=== PATIENT | female | born 1965 | race African-American/Black ===

== ENCOUNTER 2019-12-29 11:33 | Emergency (ER) | payer BC, OTHER ==
[~2019-12-29] VITALS: Ht 170.2 cm; Wt 114.8 kg
[~2019-12-29 11:33] MED LIST: CLIMARA1 EAC2 TOP; COLACE100 MG PO; GAS RELIEF 8080 MG PO; HYDROXYZINE HCL25 M2 PO; IBUPROFEN 800800 M1 PO; IROSPAN 24/6 T1 EACH PO; MILK OF MA2400 MG/10 PO; NORCO 10-325 T1 EACH PO; NORCO 5-325 TA1 EACH PO; PEPCID20 MG PO; PERCOCET 10-321 EACH PO; TYLENOL325 MG PO
[2019-12-29] MEDS ORDERED: BUSPIRONE HCL10 MG PO (12:44)
[2019-12-29 12:45] LABS: ABSOLUTE NEUTROPHILS 4.2 thou/uL (1.4-8.2); BASOPHILS 0.5 % (0.0-2.0); EOSINOPHILS 1.9 % (0.0-3.0); HEMATOCRIT 36.7 % (37.0-47.0); HEMOGLOBIN 11.9 gm/dL (12.0-15.0); LYMPHOCYTES 23.1 % (24.0-44.0); MCH 26.6 pg (26.0-34.0); MCHC 32.4 g/dL (28.0-37.0); MCV 82.2 fL (80.0-100.0); MONOCYTES 7.2 % (1.0-8.0); PLATELET COUNT 237 thou/uL (150-400); POLYS 67.3 % (36.0-66.0); RBC 4.46 mil/uL (4.20-5.00); RDW 13.3 % (10.5-14.5); WBC 6.2 thou/uL (4.0-11.0)
[2019-12-29 12:53] LABS: ANION GAP 8 mmol/L (7-16); BUN 13 mg/dL (7-18); CALCIUM 9.1 mg/dL (8.5-10.1); CHLORIDE 106 mmol/L (98-107); CO2 28 mmol/L (21-32); CREATININE 0.9 mg/dL (0.6-1.0); GLUCOSE 131 mg/dL (74-106); POTASSIUM 3.9 mmol/L (3.5-5.1); SODIUM 142 mmol/L (136-145)
[2019-12-29 13:02] LABS: TROPONIN-I <0.06 ng/mL (<0.06)
[2019-12-29 15:10] VITALS: BP 138/105
--- NOTE | 2019-12-29 15:51 | EKG ---
[facility] [place] [address] ELECTROCARDIOGRAM REPORT Name: FRANCA CARDONA Room #: DEP [facility]#: [id number] Admission: 12/29/19 Attend Phys: Discharge: 12/29/19 Date of : 61 Report #: [id number] THIS REPORT FOR: cc: Kendall Martínez MD, Kirk D. MD Couchonnal, Luis F. MD ~ THIS REPORT FOR: //name// [facility] ED Test Date: 2019-12-29 Test Time: 15:06:08 Pat Name: FRANCA CARDONA Department: Room: Gender: F Adjunct Faculty Mathematics Department: cosme : 1965 Requested By: Lucio Hinton Order Number: [id number] MD: Kit Fernandes Measurements Intervals [place] Rate: 86 P: 53 ID: 176 QRS: 21 QRSD: 95 T: 18 QT: 351 QTc: 420 Interpretive Statements Sinus rhythm Probable left atrial enlargement Probable anteroseptal infarct, old No previous ECG available for comparison Electronically Signed On 12-29-2019 15:51:05 CDT by Kit Fernandes [email or web address] <ELECTRONICALLY SIGNED> By: Kit Fernandes MD 12/29/19 1551 [id number] Kit Fernandes MD /EPI
== END 2019-12-29 15:18 | disposition home or self-care (01) ==
LOC: ER 11:33
PROVIDERS: Emergency Medicine
DX: R00.2 Palpitations (principal); R42 Dizziness and giddiness; R20.2 Paresthesia of skin; Z86.2 Personal history of diseases of the blood and blood-forming organs and certain disorders involving the immune mechanism; Z79.899 Other long term (current) drug therapy

== ENCOUNTER 2020-02-27 16:03 | Inpatient (IN) | payer BC, OTHER ==
[~2020-02-27] VITALS: Ht 170.2 cm; Wt 111.6 kg
[~2020-02-27 16:03] MED LIST changes: +BUSPIRONE HCL10 MG PO
[2020-02-27 16:04] VITALS: BP 105/57
[2020-02-27] MEDS ORDERED: AZITHROMYCIN 2250 MG PO (16:20)
[2020-02-27] MEDS ORDERED: HYDROXYCHLOROQ200 M1 PO (16:21)
[2020-02-27 16:37] LABS: ABSOLUTE NEUTROPHILS 3.8 thou/uL (1.4-8.2); BASOPHILS 0.7 % (0.0-2.0); HEMATOCRIT 36.5 % (37.0-47.0); LYMPHOCYTES 17.5 % (24.0-44.0); MCH 26.5 pg (26.0-34.0); MCHC 32.9 g/dL (28.0-37.0); MCV 80.8 fL (80.0-100.0); MONOCYTES 7.9 % (1.0-8.0); PLATELET COUNT 196 thou/uL (150-400); POLYS 73.9 % (36.0-66.0); RBC 4.51 mil/uL (4.20-5.00); RDW 13.4 % (10.5-14.5); WBC 5.2 thou/uL (4.0-11.0)
[2020-02-27 16:43] LABS: CALCIUM 9.1 mg/dL (8.5-10.1); CREATININE 1.5 mg/dL (0.6-1.0); POTASSIUM 4.2 mmol/L (3.5-5.1)
[2020-02-27 16:49] LABS: ALBUMIN 3.3 g/dL (3.4-5.0); TOTAL BILIRUBIN 0.4 mg/dL (0.2-1.0); TOTAL PROTEIN 8.3 g/dL (6.4-8.2)
[2020-02-27 17:45] VITALS: BP 111/67
[2020-02-28 06:28] LABS: ALBUMIN 2.6 g/dL (3.4-5.0); CREATININE 0.9 mg/dL (0.6-1.0); PHOSPHORUS 3.3 mg/dL (2.5-4.9)
[2020-02-28 06:55] LABS: POTASSIUM 4.9 mmol/L (3.5-5.1)
--- NOTE | 2020-02-28 11:32 | NUR ---
NIKITA CALLED TO INFORM THIS NURSE THAT PT HAS PNEUMONIA AND WILL BE STAYING, PT TO START STEROIDS, ABT, AND REFERRAL TO [facility]
[2020-02-28 17:37] VITALS: BP 134/74
[2020-02-29 06:12] LABS: INR 1.1; PROTIME 11.2 Seconds (9.3-11.4)
[2020-02-29 06:13] LABS: ABSOLUTE NEUTROPHILS 3.2 thou/uL (1.4-8.2); BASOPHILS 0.5 % (0.0-2.0); EOSINOPHILS 1.2 % (0.0-3.0); HEMATOCRIT 33.4 % (37.0-47.0); HEMOGLOBIN 10.8 gm/dL (12.0-15.0); LYMPHOCYTES 25.5 % (24.0-44.0); MCH 26.9 pg (26.0-34.0); MCHC 32.3 g/dL (28.0-37.0); MCV 83.1 fL (80.0-100.0); PLATELET COUNT 172 thou/uL (150-400); POLYS 64.8 % (36.0-66.0); RBC 4.01 mil/uL (4.20-5.00); RDW 13.4 % (10.5-14.5); WBC 4.9 thou/uL (4.0-11.0)
[2020-02-29 06:18] LABS: FIBRINOGEN 489.1 mg/dL (210-360)
[2020-02-29 06:40] LABS: ALBUMIN 2.8 g/dL (3.4-5.0); CALCIUM 8.8 mg/dL (8.5-10.1); CREATININE 0.9 mg/dL (0.6-1.0); POTASSIUM 4.2 mmol/L (3.5-5.1); TOTAL BILIRUBIN 0.3 mg/dL (0.2-1.0); TOTAL PROTEIN 7.3 g/dL (6.4-8.2)
[2020-02-29 10:06] VITALS: BP 140/88
[2020-02-29 14:20] VITALS: BP 136/74
[2020-02-29 18:30] VITALS: BP 132/79
[2020-02-29 20:35] VITALS: BP 148/93
[2020-03-01 01:56] VITALS: BP 157/96
[2020-03-01 02:45] VITALS: BP 129/88
--- NOTE | 2020-03-01 07:18 | NUR ---
Arrived from ER around 0235. Enhanced precaution (COVID +) , afebrile. No nausea or diarrhea since arrival on the floor. Sputum sample sent. ER sent MRSA swab and urine sample.
[2020-03-01 07:58] VITALS: BP 122/75
[2020-03-01 08:42] VITALS: BP 136/83; BP 141/85
--- NOTE | 2020-03-01 15:49 | NUR ---
INITIAL ASSESSMENT: SW reviewed chart and spoke with nursing and attending physician. Pt is in Enhanced Isolation due to positive COVID test. Pt is afebrile and on 2L of O2. Pt is on IV abx. Pt is having convalescent plasma today and is completing course of Remdesivir. SW spoke with pt via phone. Introduced role of SW. Pt is alert/orientated. Pt reports she works at [employer]. Pt lives at home and is normally independent with ADLs. Pt 's PCP is Dr. Kendall Martínez. Pt requests SW to call back at a later time. SW is following to assist as needed with discharge planning.
[2020-03-01 16:59] VITALS: BP 149/92
--- NOTE | 2020-03-01 17:00 | NUR ---
PT CARE ASSUMED AT 0700, PT ALERT AND ORIENTED X4, DENIES ANY PAIN, NAUSEA AND VOMITTING. PT IS ON ROOM AIR, NO SIGNS OF DISTRESS NOTED. UP AD TRISHA TO BATHROOM. DENIES ANY NEEDS. PROGRESSING TOWARDS CARE. WILL CONTINUE TO MONITOR.
--- NOTE | 2020-03-01 17:01 | NUR ---
0845 CONVALUSCENT PLASMA STARTED, VTALS SIGNS COMPLETED AFTER 15MINS, NO REACTION NOTED 1100 PLASMA COMPLETED, NO REACTION NOTED. VITALS SIGNS OMPLETED
[2020-03-01 19:10] VITALS: BP 158/89
[2020-03-02 05:06] VITALS: BP 166/109
[2020-03-02 05:31] VITALS: BP 132/85
[2020-03-02 06:42] LABS: ALBUMIN 3.1 g/dL (3.4-5.0); DIRECT BILIRUBIN 0.1 mg/dL (<0.1-0.2); TOTAL BILIRUBIN 0.3 mg/dL (0.2-1.0); TOTAL PROTEIN 8.4 g/dL (6.4-8.2)
[2020-03-02 07:19] VITALS: BP 128/83
--- NOTE | 2020-03-02 07:40 | NUR ---
Requested med for cough at HS , guiafenessin ordered by DRILL RIG OPERATOR.Also requested for her prn anxiety med. She slept fair during the night. MEAT AND POULTRY INSPECTOR reported elevated BP this am 166/109. Pt. upset that she got woken up for BP check. She then complained of chest pressure she rated as 7/10. She stated she had it before at home intermittently and usually takes 2 baby aspirins which help with pain. She also described chest pressure as better when taking a deep breath. Encouraged to relax and rest , rechecked BP and got 132/85. DRILL RIG OPERATOR notified of above. EKG done, aspirin 81 mg given x1. EKG sent to DRILL RIG OPERATOR with no further order. Tolerating room air well though reports shortness of breath with exertion. Cont. on enhanced precaution , afebrile. Nausea and diarrhea has resolved since yesterday. Up ad gurwinder in room with steady gait and verbalized she definitely feels a lot better than when she first got here. Making some progress towards care plan goals.
[2020-03-02 08:03] VITALS: BP 113/65
--- NOTE | 2020-03-02 08:53 | EKG ---
[facility] [place] [address] ELECTROCARDIOGRAM REPORT Name: FRANCA CARDONA Room #: 349-I ADM IN M.R.#: [id number] Admission: 02/28/20 Attend Phys: Faith Matias Discharge: Date of : 61 Report #: [id number] THIS REPORT FOR: cc: Kendall Martínez MD, Kirk D. MD Lundgren, Craig H. MD [facility] ~ THIS REPORT FOR: //name// [facility] Test Date: 2020-03-02 Test Time: 06:05:43 Pat Name: FRANCA CARDONA Department: Room: 349 I Gender: F Crystal Syrup Maker: IU--0 : 1965 Requested By: Shalini Gonsales Order Number: [id number] MD: Pedro Pablo Kwan Measurements Intervals [place] Rate: 68 P: 61 ND: 169 QRS: 28 QRSD: 90 T: 19 QT: 417 QTc: 444 Interpretive Statements Sinus rhythm No significant abnormality Compared to ECG 12/29/2019 15:06:08 Myocardial infarct finding no longer present Electronically Signed On 03-02-2020 8:53:15 CDT by Pedro Pablo Kwan [email or web address] <ELECTRONICALLY SIGNED> By: Pedro Pablo Kwan MD, [facility] 03/02/20 0853 0605 Pedro Pablo Kwan MD, [facility] /EPI
--- NOTE | 2020-03-02 11:35 | NUR ---
SW reviewed chart and spoke with nursing and attending physician. Pt remains in Enhanced Isolation due to COVID-19. Pt had convalescent plasma yesterday and completing course of Remdesivir. Pt is afebrile and not requiring O2. Pt is on IV abx. Plan is for pt to discharge home when medically stable. SW is following to assist as needed with discharge planning.
--- NOTE | 2020-03-02 13:36 | NUR ---
PT CARE ASSUMED AT 0700, PT ALERT AND ORIENTED X4, PT DENIES ANY CHEST PAIN, NAUSEA AND VOMITTING. PT IS ON ROOM AIR, NO SIGNS OF DISTRESS. UP AD TRISHA TO THE BATHROOM. DENIES ANY NEEDS ZULMA. PROGRESSING TOWARDS CARE. WILL CON TINUE TO MONITOR.
[2020-03-02 15:21] VITALS: BP 131/72
[2020-03-02 20:47] VITALS: BP 163/92
[2020-03-03 05:09] VITALS: BP 156/89
[2020-03-03 05:19] LABS: CREATININE 0.8 mg/dL (0.6-1.0); DIRECT BILIRUBIN 0.1 mg/dL (<0.1-0.2); POTASSIUM 4.5 mmol/L (3.5-5.1); TOTAL BILIRUBIN 0.2 mg/dL (0.2-1.0); TOTAL PROTEIN 7.1 g/dL (6.4-8.2)
--- NOTE | 2020-03-03 06:25 | NUR ---
Pt. slept fair during the night. She did not request for prn anxiety med this shift. Tolerating room air well though she reported she still gets short of breath with exertion. Cont. on enhanced precaution , afebrile. Up ad gurwinder in room with steady gait. Making some progress towards care plan goals.
[2020-03-03 07:34] VITALS: BP 130/80
--- NOTE | 2020-03-03 11:38 | NUR ---
SW reviewed chart and spoke with nursing and attending physician. Pt remains in Enhanced Isolation due to COVID-19. Pt is afebrile and not requiring O2. Pt is on IV abx and will complete course of Remdesivir today. Discharge home is anticipated for tomorrow. SW placed call to pt's room to discuss discharge. No answer. No discharge needs identified at this time. SW is available to assist should needs arise.
--- NOTE | 2020-03-03 16:47 | NUR ---
ASSUMED CARE OF PT AT SHIFT CHANGE. ASSESSMENT CHARTED. MEDS GIVEN PER JUL. PT A&OX4, C/O HEADACHE TREATED WITH TYLENOL. ON RA, SOA WITH EXERTION. FAMILY DROPPED OFF FOOD IN THE AFTERNOON. WILL CONTINUE TO MONITOR AND FOLLOW POC.
[2020-03-03 19:23] VITALS: BP 155/81
[2020-03-04 05:19] VITALS: BP 157/99
[2020-03-04 06:04] LABS: ALBUMIN 3.1 g/dL (3.4-5.0); DIRECT BILIRUBIN < 0.1 mg/dL (<0.1-0.2); SGOT 48 U/L (15-37); SGPT 93 U/L (30-65); TOTAL BILIRUBIN 0.3 mg/dL (0.2-1.0); TOTAL PROTEIN 8.1 g/dL (6.4-8.2)
--- NOTE | 2020-03-04 07:39 | NUR ---
ASSUMED CARE AT 1900, ASSESSMENT COMPLETED. PT C/O NECK PAIN R/T POOR SLEEP POSITION, GAVE TYLENOL. PT ALSO ASKED FOR PRN ANXIETY MED, GAVE WITH HS MEDS. DENIES NAUSEA. REPORTED SOB WITH EXERTION, SUCH TAKING A SHOWER; O2 SATS NORMAL ON RA. NO OTHER CONCERNS, SHIFT REPORT GIVEN AT 0700.
[2020-03-04 08:00] VITALS: BP 144/107
--- NOTE | 2020-03-04 08:37 | NUR ---
PATIENT UP FOR BREAKFAST. ALERT XS4 TOOK AM MEDS INCLUDING ACETAMININOPHEN FOR GENERAL DISCOMFORT AND T= 99.3 PT EATING BREAKFAST. IV ABT INFUSING ORDERED,
[2020-03-04] MEDS ORDERED: PREDNISONE 20 M20 M1 PO (10:32)
[2020-03-04] MEDS ORDERED: ZINC SULFATE 2220 MG PO (10:32)
--- NOTE | 2020-03-04 11:10 | NUR ---
COVID 19 TEST COMPLETED DONE IN LEFT NARE DISCOMFORT TO PATIENT TEST TO LAB.
[2020-03-04 15:10] VITALS: BP 134/74
[2020-03-04 16:10] VITALS: BP 132/80
--- NOTE | 2020-03-04 16:19 | NUR ---
PATIENT'S V.S AT THIS TIME 97.1 18 104 167/81 O2 SAT 100 RA PT GIVEN ZANAX AT THIS TIME PER HER REQUEST. WILL CALL DOCTOR TO SEE IF HE WANTS PRN B/P MED.
--- NOTE | 2020-03-04 16:25 | NUR ---
PT TO DISCHARGE TO HOME TODAY TELE MONITOR DCD AND IV ACSESS DCD. PT TAKING SHOWER COVID 19 RAPID TEST IS NEGATIVE.
--- NOTE | 2020-03-04 16:57 | NUR ---
DISCHARGE PAPERS REVIEWED WITH PATIENT SIGNED AND COPY IN CHART. PT TAKEN WITH BELONGINGS VIA W/C TO ER TO SON'S CAR FOR DISCHARGE NO PAIN OR REP DISTRESS AT DISCHARGE.
--- NOTE | 2020-03-04 20:47 | NUR ---
COVID TEST CAME BACK POSITIVE, PT HAD ALREADY BEEN DISCHARGED, SHE WAS TESTING POSITIVE PRIOR TO DC.
== END 2020-03-04 17:00 | disposition home or self-care (01) | DRG 177 ==
LOC: ER 16:03 → EROBS 18:18 → 3W 03-01 02:15
PROVIDERS: Emergency Medicine; Specialist; ADMIT Hospitalist; ATTEND Hospitalist
PROC: XW033E5 Introduction of Remdesivir Anti-infective into Peripheral Vein, Percutaneous Approach, New Technology Group 5 (ICD-10-PCS; principal; 2020-02-29)
PROC: XW13325 Transfusion of Convalescent Plasma (Nonautologous) into Peripheral Vein, Percutaneous Approach, New Technology Group 5 (ICD-10-PCS; 2020-03-01)
DX: U07.1 COVID-19 (principal); J12.89 Other viral pneumonia; J96.01 Acute respiratory failure with hypoxia; N17.9 Acute kidney failure, unspecified; E86.0 Dehydration; K52.9 Noninfective gastroenteritis and colitis, unspecified; K75.9 Inflammatory liver disease, unspecified; E66.9 Obesity, unspecified; Z68.38 Body mass index [BMI] 38.0-38.9, adult; Z79.899 Other long term (current) drug therapy
CPT/HCPCS: 10879

== ENCOUNTER 2021-04-04 21:21 | Inpatient (IN) | payer BC, OTHER ==
[~2021-04-04] VITALS: Ht 170.2 cm; Wt 111.1 kg
--- NOTE | ~2021-04-04 | HC ---
[facility] [place] [address] CONSULTATION Name: FRANCA CARDONA Room #: 208-P ADM IN M.R.#: [id number] Admission: 04/05/21 Attend Phys: King Knight MD Discharge: Date of : 61 Report #: [id number] THIS REPORT FOR: cc: [facility] - Clinic physician unknown [facility] - Clinic physician unknown Rizwan Rosales MD ~ DATE OF SERVICE: 04/05/2021 HISTORY OF PRESENT ILLNESS: This is a 55-year-old female patient who was seen by me for TIA-like symptoms. The patient presented with a left-sided numbness. This is in relation to having some tooth pain also. History is pretty unusual. When I saw this patient, she said her numbness has resolved. I reviewed the record and looks like she was seen by Teleneurology and they had recommended an MRI of the brain, MRA of the head and neck because CT angiogram was inconclusive. Only CT of the head and a CTA of the head was ordered and that had been done and that does not show any abnormality except some mild chronic changes. Those findings are pretty subtle. REVIEW OF SYSTEMS: Positive for anxiety. She has some tooth pain. To me, she says she has tingling and numbness on the left side. She has given different history to different people. She has prior history of anxiety, hysterectomy, COVID positive in 02/2020, anemia and . She has been on antianxiety medication, compliance is not clear. This was a relevant 14-point review of system. PAST MEDICAL HISTORY: Positive for anxiety. FAMILY HISTORY: Unremarkable. SOCIAL HISTORY: She does not drink alcohol. PHYSICAL EXAMINATION: She is alert. She can tell me what month it is. Her speech looks intact. Cranial nerve examination II-XII does not appear to be showing any definite abnormality. She says even subjective numbness has gone. Strength looks symmetrical. Reflexes look symmetrical. There is no ataxia. I could not look at the fundus. There is no meningeal sign. Hearing and vision looks adequate. She is morbidly obese. She does not have any edema. Pulses appeared to be palpable. Cardiac examination is unremarkable. No respiratory difficulty. Blood pressure is 138/83, pulse is 83, temperature is 97.9. Hematocrit is 36.4. Her GFR was actually 105. TSH was normal. IMPRESSION: Pretty poorly defined symptoms with the workup being negative so far. I am not sure what the cause of her TIA was even. She is on aspirin. We will see the lipid profile to see if there is any need to give the patient statin. Her sed rate and vitamin B12 is pending and I am not sure what else can be done except a psychiatry consult for anxiety also. [address] [address] CONSULTATION Name: FRANCA CARDONA Room #: 208-P ADM IN M.R.#: [id number] Admission: 04/05/21 Attend Phys: King Knight MD Discharge: Date of : 61 Report #: [id number] Thank you very much for this referral and if you have any questions, please feel free to contact me. By: 1635 2231 Rizwan Rosales MD /nt
--- NOTE | ~2021-04-04 | EMS ---
[address] [address] EMS Patient Care Report Name: FRANCA CARDONA Room #: 208-P ADM IN M.R.#: [id number] Admission: 04/05/21 Attend Phys: King Knight MD Discharge: Date of : 61 Report #: [id number] THIS REPORT FOR: //name// Report Transmitted: 04/05/2021 13:17 EMS Care Summary [place], [place] Incident [id number] @ 04/04/2021 20:47 Incident Location [address] [place] [address] RD Patient FRANCA CARDONA Female, 55 Years 1965 Patient Address [address] [place] [address] Patient History None Reported, Patient Allergies No known allergies, Patient Medications None Reported, Chief Complaint TOOTHACHE Disposition Transported No Lights/[place] Dispatch Reason Sick Person Transported To [facility] Narrative M30 RESPONDED NON EMERGENCY TO A SICK PERSON. ON SCENE M30 WALKED INTO TO [facility] AND FOUND A STAFF MEMBER BEHIND A COUNTER. [place] STAFF CALLED EMS FOR A TOOTHACHE. PT WAS A&OX4, GCS OF15. NO TRAUMA OR BLEEDING NOTED. PT WAS NOT IN ANY DISTRESS, BUT LOOKED IN DISCOMFORT STATING THAT HE'S HAD RIGHT SIDE TOOTHACHE FOR A WEEK. PT ALSO REPORTED HEADACHE. PT [address] [address] EMS Patient Care Report Name: FRANCA CARDONA Room #: 208-P [facility] IN ..#: [id number] Admission: 04/05/21 Attend Phys: King Knight MD Discharge: Date of : 61 Report #: [id number] REQUESTED TRANSPORT VIA AMBULANCE TO [facility]. PT BOARDED THE STRETCHER AND SHE WAS SECURED WITH SEATBELTS. PT WAS MOVED TO THE AMBULANCE. PT'S CONDITION REMAINED STABLE AND UNCHANGED DURING NON EMERGENCY TRANSPORT TO THE HOSPITAL. PT CARE WAS TRANSFERRED TO ER STAFF IN TRIAGE AREA. PT WAS LOWERED ON COT AND RELEASED TO A CHAIR WHERE SHE HAD A SEAT AND WAITED. EMS NOTIFIED THE NURSE THAT THE PT WAS WAITING. PT WAS LEFT UNDER RN CARE. Initial Vitals @21:02P: 95,R: 16,BP: 157/107,Pain: 8/10,GCS: 15,CO: 0,SpO2: 100,Revised Trauma: 12, Assessments @21:00MENTAL:No Abnormalities,SKIN:No Abnormalities,HEENT:Head/Face: No Abnormalities,Eyes: No Abnormalities,Neck/Airway: No Abnormalities,LUNG SOUNDS:General: No Abnormalities,Left Upper: No Abnormalities,Right Upper: No Abnormalities,Left Lower: No Abnormalities,Right Lower: No Abnormalities,ABDOMEN:General: No Abnormalities,Left Upper: No Abnormalities,Right Upper: No Abnormalities,Left Lower: No Abnormalities,Right Lower: No Abnormalities,PELVIS//GI:No Abnormalities,EXTREMITIES:Left Arm: No Abnormalities,Right Arm: No Abnormalities,Left Leg: No Abnormalities,Right Leg: No Abnormalities,PULSE:NEURO:No Abnormalities, Impression Toothache Procedures @21:00 ALS Assessment Response: UnchangedSucceeded Timeline 20:45,Call Received 20:45,Dispatch Notified 20:47,Dispatched 20:48,En Route 20:58,On Scene 21:00,At Patient 21:00,ALS Assessment,Response: UnchangedSucceeded, 21:02,BP: 157/107 M,PULSE: 95,RR: 16 R,SPO2: 100 Ox,ETCO2: ,BG: ,PAIN: 8,GCS: 15, 21:10,Depart Scene 21:26,At Destination 21:31,Call Closed Disclaimer v1.1 Copyright 2020 [employer] This EMS Care Summary contains data elements from the applicable legal record [address] [address] EMS Patient Care Report Name: FRANCA CARDONA Naima Room #: 208-P ADM IN [facility].#: [id number] Admission: 04/05/21 Attend Phys: King Knight MD Discharge: Date of : 61 Report #: [id number] (which may be displayed differently). It is designed to provide pertinent information for the following purposes: continuity of care, clinical quality, and state data reporting. The complete legal record is available to ED staff and administrators of the receiving hospital in [employer] Patient Tracker. All data is provided "as is."
[~2021-04-04 21:21] MED LIST changes: +AZITHROMYCIN 2250 MG PO; +HYDROXYCHLOROQ200 M1 PO; +PREDNISONE 20 M20 M1 PO; +ZINC SULFATE 2220 MG PO
[2021-04-04 21:27] VITALS: BP 163/87
[2021-04-04 22:28] LABS: ABSOLUTE NEUTROPHILS 3.6 thou/uL (1.4-8.2); BASOPHILS 0.7 % (0.0-2.0); EOSINOPHILS 2.4 % (0.0-3.0); HEMATOCRIT 36.4 % (37.0-47.0); HEMOGLOBIN 12.1 gm/dL (12.0-15.0); LYMPHOCYTES 29.5 % (24.0-44.0); MCHC 33.2 g/dL (28.0-37.0); MCV 81.3 fL (80.0-100.0); MONOCYTES 7.1 % (1.0-8.0); PLATELET COUNT 240 thou/uL (150-400); POLYS 60.3 % (36.0-66.0); RBC 4.47 mil/uL (4.20-5.00); RDW 13.4 % (10.5-14.5)
[2021-04-04 22:36] LABS: APTT 25.9 Seconds (24.5-32.8); INR 0.99; PROTIME 10.8 Seconds (10.5-12.1)
[2021-04-04 22:41] LABS: CALCIUM 8.8 mg/dL (8.5-10.1); CREATININE 0.7 mg/dL (0.6-1.0); POTASSIUM 3.5 mmol/L (3.5-5.1)
[2021-04-04 22:50] LABS: ALBUMIN 3.7 g/dL (3.4-5.0); TOTAL BILIRUBIN 0.3 mg/dL (0.2-1.0); TOTAL PROTEIN 7.5 g/dL (6.4-8.2)
[2021-04-05] VITALS (8 sets, daily range): BP systolic 122–153; BP diastolic 69–94
--- NOTE | 2021-04-05 07:07 | EKG ---
[address] [address] ELECTROCARDIOGRAM REPORT Name: FRANCA CARDONA Naima Room #: 208-[facility] IN ..#: [id number] Admission: 04/05/21 Attend Phys: Kendall Osman MD Discharge: Date of : 61 Report #: [id number] [facility] ED Test Date: 2021-04-04 Test Time: 22:40:22 Pat Name: FRANCA CARDONA Department: Room: 208 Gender: F Final Coat Sprayer: ADELINE : 1965 Requested By: Jyothi Saunders Order Number: [id number] MD: Jared Arredondo Measurements Intervals [place] Rate: 81 P: 61 GA: 171 QRS: 27 QRSD: 88 T: 66 QT: 396 QTc: 460 Interpretive Statements Sinus rhythm Probable anteroseptal infarct, old Compared to ECG 03/02/2020 06:05:43 Myocardial infarct finding now present Electronically Signed On 04-05-2021 7:07:22 CLINICAL CYTOGENETICIST by Jared Arredondo [email or web address] <ELECTRONICALLY SIGNED> By: Jared Arredondo MD, [facility] 04/05/21 0707 39 39 Jared Arredondo MD, [facility] /EPI
--- NOTE | 2021-04-05 13:37 | 2DMMODE ---
[facility] [place] [address] 2 D/M-MODE ECHOCARDIOGRAM Name: FRANCA CARDONA Room #: 208-P ADM IN M.R.#: [id number] Admission: 04/05/21 Attend Phys: King Knight MD Discharge: Date of : 61 Report #: [id number] THIS REPORT FOR: cc: [facility] - [facility] physician unknown [facility] - Clinic physician unknown Pedro Pablo Kwan MD [facility] ~ APPROVED REPORT Study performed: 04/05/2021 12:51:20 EXAM: Comprehensive 2D, Doppler, and color-flow Echocardiogram Patient Location: Bedside Room #: 208 Status: routine BSA: 2.19 HR: 77 bpm BP: 129/88 mmHg Rhythm: NSR Other Information Study Quality: Adequate Indications Near syncope. Left sided paresthesia. Echo Enhancing Agent Indication: Rule out Shunt Agent(s) / Amount(s) Used: Agitated Saline 7 cc Comments: Bubble study attempted 3 times unseccussfully. (Possible bad IV). 2D Dimensions RVDd: 37.04 mm IVSd: 10.68 (7-11mm) LVOT Diam: 19.14 (18-24mm) LVDd: 47.03 mm PWd: 9.96 (7-11mm) Ascending Ao: 31.19 (22-36mm) LVDs: 32.56 (25-40mm) Left Atrium: 30.88 (27-40mm) Volumes Left Atrial Volume (Systole) Single Plane 4CH: 26.34 mL Single Plane 2CH: 31.10 mL LA ESV Index: 14.00 mL/m2 [facility] [address] [place] [address] 2 D/M-MODE ECHOCARDIOGRAM Name: FRANCA CARDONA Naima Room #: 208-P [facility] IN [facility]#: [id number] Admission: 04/05/21 Attend Phys: King Knight MD Discharge: Date of : 61 Report #: [id number] Aortic Valve AoV Peak Jose Luis.: 1.70 m/s AO Peak Gr.: 11.53 mmHg LVOT Max P.45 mmHg LVOT Max V: 1.05 m/s REYES Vmax: 1.79 cm2 Mitral Valve E/A Ratio: 0.8 MV Decel. Time: 256.71 ms MV E Max Jose Luis.: 0.51 m/s MV A Jose Luis.: 0.67 m/s MV PHT: 74.45 ms IVRT: 79.58 ms Pulmonary Valve PV Peak Jose Luis.: 0.88 m/s PV Peak Gr.: 3.09 mmHg Tricuspid Valve TR Peak Jose Luis.: 2.16 m/s TR Peak Gr.: 19.00 mmHg Left Ventricle The left ventricle is normal size. There is normal LV segmental wall motion. There is normal left ventricular wall thickness. The left ventricular systolic function is normal. LVEF 60%. Mild diastolic dysfunction Right Ventricle The right ventricle is normal size. The right ventricular systolic function is normal. Atria The left atrium size is normal. The right atrium size is normal. Aortic Valve The aortic valve is not well visualized but appears grossly normal. No aortic regurgitation is present. There is no aortic valvular stenosis. Mitral Valve The mitral valve is normal in structure. Trace mitral regurgitation. Tricuspid Valve The tricuspid valve is normal in structure. Trace tricuspid [facility] [address] [place] [address] 2 D/M-MODE ECHOCARDIOGRAM Name: FRANCA CARDONA Room #: 208-P ADM IN M.R.#: [id number] Admission: 04/05/21 Attend Phys: King Knight MD Discharge: Date of : 61 Report #: [id number] regurgitation. Estimated pulmonary artery pressure of 25mmHg. Pulmonic Valve Pulmonic valve is not well visualized. Great Vessels The aortic root is normal in size. The ascending aorta is normal in size. IVC is poorly visualized. Pericardium There is no pericardial effusion. <Conclusion> The left ventricular systolic function is normal. There is normal LV segmental wall motion. LVEF 60%. Mild diastolic dysfunction The aortic valve is not well visualized but appears grossly normal. No aortic regurgitation or stenosis The mitral valve is normal in structure. Trace mitral regurgitation. Trace tricuspid regurgitation. Estimated pulmonary artery pressure of 25mmHg. There is no pericardial effusion. <ELECTRONICALLY SIGNED> By: Pedro Pablo Kwan MD, FACC 04/05/211336 36 36 Pedro Pablo Kwan MD, FACC /INF
--- NOTE | 2021-04-05 15:55 | NUR ---
Case opened to follow for dc planning. Pt is a&ox4 and indicates that she was working and indep prior to admission. She is a nurse at [employer]. Her adult son lives with her and is an emergency contact along with her brother. Neuro workup for r/o stroke in progress. Pt is up with sba. Cm role introduced. No cm interventions indicated at this time. Will follow along should dc needs arise.
[2021-04-05 17:02] LABS: CHOLESTEROL 240 mg/dL (<200); HDL CHOLESTEROL 51 mg/dL (>40); LDL CHOLESTEROL 169 mg/dL (<100); TC:HDL 4.7 Ratio (Not establshd); TRIGLYCERIDE 101 mg/dL (<150); VLDL 20 mg/dL (<40)
[2021-04-05 17:05] LABS: SERUM ASSESSMENT Clear
--- NOTE | 2021-04-05 17:15 | NUR ---
TOOK OVER CARE OF THIS PATIENT AT 0700; BEDSIDE SHIFT REPORT RECEIVED. PATIENT SLEEPING DURING SHIFT REPORT. COMPLAINTS OF RIGHT SIDED TOOTH PAIN; PRN PAIN MEDICATION ADMINISTERED. TALKED TO PATIENT ABOUT HOW OFTEN SHE SEES THE DENTIST; PT REPORTS SHE HASN'T BEEN TO THE DENTIST IN OVER 2 YEARS. FAMILY MEMBER PRESENT IN THE ROOM AT THIS TIME. DENIES ANY SOA, CHEST DISCOMFORT, NUMBNESS OR TINGLING. PATIENT SR ON MONITOR. FALL PRECAUTIONS IN PLACE. WILL CONTINUE TO MONITOR.
--- NOTE | 2021-04-06 01:18 | NUR ---
ASSUMED PT CARE AT 1900.PT ALERT AND IN NO ACUTE DISTRESS.PT'S SON AT HER BEDSIDE AT SHIFT CHANGE.RADIOLOGY CALLED FOR PT TO COME DOWN FOR US AT ALMOST [place],PT WAS ASLEEP AT THE TIME.PT STATED THAT SHE WAS TIRED AND WILL DO IT IN THE AM.NO C/O TOOTH PAIN NOTED SO FAR.PT BREATHING REGULAR AND UNLABORED.PT UP ADLIB WITH A STEADY GAIT.PT ABLE TO MAKE HER NEEDS KNOWN.CALL LIGHT WITHIN REACH.
[2021-04-06 05:24] VITALS: BP 125/71
[2021-04-06 06:06] LABS: CALCIUM 8.9 mg/dL (8.5-10.1); POTASSIUM 4.3 mmol/L (3.5-5.1)
[2021-04-06 07:00] VITALS: BP 113/65
[2021-04-06 11:30] VITALS: BP 141/89
[2021-04-06] MEDS ORDERED: ADULT LOW DOSE81 MG PO (13:50)
[2021-04-06] MEDS ORDERED: HYDROCODON-ACE1 EAC7 PO (13:50)
[2021-04-06] MEDS ORDERED: ACETAMINOPHEN325 M1 PO (13:50)
[2021-04-06 14:20] VITALS: BP 141/89
--- NOTE | 2021-04-06 15:28 | NUR ---
TOOK OVER CARE FOR THIS PATIENT AT 0700. PATIENT DENIES ANY NEEDS AT THIS TIME. DENIES ANY PAIN. DISCHARGE EDUCATION PROVIDED; NO QUESTIONS REGARDING DISCHARGE EDUCATION. TRANSPORTED BY WHEELCHAIR WITH NURSING STAFF.
[2021-04-06 23:06] LABS: GLYCOHEMOGLOBIN (HGB A1C) 7.1 % (4.8-5.6)
== END 2021-04-06 16:25 | disposition home or self-care (01) | DRG 291 ==
LOC: ER 21:21 → EROBS 04-05 00:12 → 2N 04-05 00:12
PROVIDERS: Nurse Practitioner Family; ADMIT Internal Medicine; ATTEND Internal Medicine
DX: I11.0 Hypertensive heart disease with heart failure (principal); I50.33 Acute on chronic diastolic (congestive) heart failure; F41.9 Anxiety disorder, unspecified; R20.2 Paresthesia of skin; K08.89 Other specified disorders of teeth and supporting structures; K02.9 Dental caries, unspecified; F41.0 Panic disorder [episodic paroxysmal anxiety]; E78.5 Hyperlipidemia, unspecified; Z20.822 Contact with and (suspected) exposure to COVID-19; F41.1 Generalized anxiety disorder; E66.01 Morbid (severe) obesity due to excess calories; Z68.38 Body mass index [BMI] 38.0-38.9, adult; Z90.710 Acquired absence of both cervix and uterus; Z86.16 Personal history of COVID-19; Z83.3 Family history of diabetes mellitus; Z82.49 Family history of ischemic heart disease and other diseases of the circulatory system
CPT/HCPCS: 10081